=== PATIENT | female | born 1965 | race Caucasian/White ===

== ENCOUNTER 2017-12-31 15:35 | Emergency (ER) | payer MEDICARE, MEDICAID ==
[2017-12-31] MEDS ORDERED: NS 0.9% 1000 ML* 1,000 ML IV ONE (16:05)
[2017-12-31 17:09] LABS: ABS Basophils 0.1 10^3/ul (0-0.2); ABS Eosinophils 0.1 10^3/ul (0-0.6); ABS Lymphocytes 2.2 10^3/ul (1.0-4.8); ABS Monocytes 0.8 10^3/ul (0-0.8); ABS Neutrophils 5.5 10^3/ul (1.5-7.7); ABS Nucleated RBC 0 10^3/ul; Eosinophil % 0.7 % (0-6); Hematocrit 42 % (35-47); Hemoglobin 14.4 g/dl (12.0-16.0); Lymphocyte % 25.1 % (25-47); Mean Corpuscular HGB Conc 34 g/dl (31-36); Mean Corpuscular Hemoglobin 33 pg (27-31); Mean Corpuscular Volume 96 fL (80-97); Mean Platelet Volume 9 um3 (7.4-10.4); Nucleated Red Blood Cells % 0.1; Platelet Count 382 10^3/ul (150-450); Red Blood Count 4.33 10^6/ul (4.0-5.4); Red Cell Distribution Width 14 % (10.5-15); White Blood Count 8.7 10^3/ul (3.5-10.8)
[2017-12-31 17:18] LABS: EGFR Non-African American 84.4 (>60)
--- NOTE | 2017-12-31 18:07 | RAD ---
HISTORY: Bloody stool COMPARISONS: None VIEWS: Frontal views of the abdomen. FINDINGS: BOWEL: There is a nonspecific bowel gas pattern, with nondilated small bowel gas noted. CALCULI: There are no abnormal calculi. BONES AND SOFT TISSUES: Mild degenerative changes are noted. There is postsurgical versus remote post right changes to the left iliac crest. OTHER FINDINGS: The lung bases are clear. There is no subphrenic gas. Surgical clips are noted in the pelvis and in the left upper quadrant. IMPRESSION: NONSPECIFIC BOWEL GAS PATTERN.
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
[2018-01-01 01:22] VITALS: BP 149/78
== END 2017-12-31 19:58 | disposition home or self-care (01) ==
LOC: ED 15:35
DX: K52.9 Noninfective gastroenteritis and colitis, unspecified (principal); K92.2 Gastrointestinal hemorrhage, unspecified; Z87.891 Personal history of nicotine dependence; Z88.5 Allergy status to narcotic agent
CPT/HCPCS: 36415; 74019; 80053; 85025; 96360; 96361; 99283

== ENCOUNTER 2018-02-08 11:57 | Emergency (ER) | payer MEDICAID, MEDICARE ==
[2018-02-08] MEDS ORDERED: Acetaminophen TAB* 325 MG PO ONE (12:50)
[2018-02-08 12:52] VITALS: BP 99/63
--- NOTE | 2018-02-08 13:27 | RAD ---
Indication: Right shoulder pain. 4 views of the right shoulder demonstrates AC joint arthritis. There is no fracture. No other bone or joint abnormality is noted. IMPRESSION: No fracture of the right shoulder is noted.
[2018-02-08] MEDS ORDERED: Naproxen TAB* 250 MG PO ONE (13:28)
--- NOTE | 2018-02-08 13:44 | UC ---
Shoulder Pain HPI - HPI Summary HPI Summary: 53 yo WF p/w right shoulder injury while at work after lifitng heavy dishes for 5 hrs 3 days ago, now virtually has NO ROM in right shoulder and c/o severe pains over rihgt middle head of the deltoid muscle, denies numbness or tingling - History of Current Complaint Chief Complaint: UCUpperExtremity Stated Complaint: SHOULDER INJURY Time Seen by Provider: 02/08/18 13:14 Hx Obtained From: Patient Hx Last Menstrual Period: 4 wks ago Onset/Duration: Lasting Days Severity Initially: Severe Severity Currently: Severe Pain Intensity: 7 Character: Sharp, Throbbing, Spasmodic, Stiffness Aggravating Factor(s): Movement Alleviating Factor(s): Nothing Associated Signs And Symptoms: Positive: Negative - Allergies/Home Medications Allergies/Adverse Reactions: Allergies Allergy/AdvReac Type Severity Reaction Status Date / Time codeine Allergy Unknown Verified 02/08/18 13:32 Reaction Details propoxyphene [From Darvon] Allergy Unknown Verified 02/08/18 13:32 Reaction Details Home Medications: Home Medications Baclofen TAB* [Lioresal TAB*] 1 tab PO DAILY PRN 02/08/18 [History Confirmed ] Gabapentin 1 cap PO DAILY 02/08/18 [History Confirmed 02/08/18] QUEtiapine TAB* [Seroquel TAB*] 50 mg PO DAILY 02/08/18 [History Confirmed 02/08] PMH/Surg Hx/FS Hx/Imm Hx Previously Healthy: Yes - Surgical History Surgical History: Yes Surgery Procedure, Year, and Place: splenectomy;. facial reconstructions;. wrist fracture repair x 2 left,. CERVICAL FUSION 2009 - Family History Known Family History: Positive: Diabetes - Father - Social History Alcohol Use: Occasionally Substance Use Type: None, Prescribed Smoking Status (MU): Former Smoker Review of Systems Constitutional: Negative Skin: Negative Eyes: Negative ENT: Negative Respiratory: Negative Cardiovascular: Negative Gastrointestinal: Negative Genitourinary: Negative Motor: Negative Neurovascular: Negative Musculoskeletal: Myalgia - SEE HPI, Other: - Right shoulder pain Neurological: Negative Psychological: Negative All Other Systems Reviewed And Are Negative: Yes Physical Exam Triage Information Reviewed: Yes Appearance: Ill-Appearing Vital Signs: Initial Vital Signs Temp 36.2 C 02/08/18 12:45 Pulse 97 02/08/18 12:45 Resp 16 02/08/18 12:45 BP 99/63 02/08/18 12:45 Pulse Ox 97 02/08/18 12:45 Eye Exam: Normal ENT Exam: Normal Dental Exam: Normal Neck exam: Normal Neck: Positive: 1 Respiratory Exam: Normal Cardiovascular Exam: Normal Abdominal Exam: Normal Musculoskeletal: Positive: Strength Limited @, ROM Limited @ - right shoulder, severe TTP over middle head of R deltoid Neurological Exam: Normal Psychological Exam: Normal Skin Exam: Normal Shoulder Course/Dx - Course Course Of Treatment: R shoulder XR - no fx - Differential Dx/Diagnosis Differential Diagnosis/HQI/PQRI: Rotator Cuff Injury, Sprain, Strain, Tendonitis Provider Diagnoses: right rotator cuff strain Discharge - Discharge Plan Condition: Stable Disposition: HOME Prescriptions: Naproxen 500 mg PO BID 10 Days #20 tablet Tizanidine HCl [Zanaflex] 4 mg PO BEDTIME 5 Days #5 tablet Patient Education Materials: Rotator Cuff Injury (ED) Referrals: Gruwinder Weldon MD [Primary Care Provider] - Geno Hammer MD [Medical Doctor] - Additional Instructions: Follow up with orthopedics within one week
== END 2018-02-08 14:10 | disposition home or self-care (01) ==
LOC: UCEAST 11:57
DX: S46.011A Strain of muscle(s) and tendon(s) of the rotator cuff of right shoulder, initial encounter (principal); X50.0XXA Overexertion from strenuous movement or load, initial encounter; Y93.89 Activity, other specified; Y92.511 Restaurant or cafe as the place of occurrence of the external cause; Y99.0 Civilian activity done for income or pay; Z88.5 Allergy status to narcotic agent; Z87.891 Personal history of nicotine dependence
CPT/HCPCS: 99212; A9270-GY; G0463

== ENCOUNTER 2018-11-27 16:09 | Emergency (ER) | payer MEDICARE, MEDICAID ==
[2018-11-27 17:00] VITALS: BP 143/82
[2018-11-27] MEDS ORDERED: Ketorolac INJ* 30 MG/ML 1 ML VIAL IM ONE (17:12)
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
== END 2018-11-27 18:42 | disposition home or self-care (01) ==
LOC: UCEAST 16:09
DX: S20.211A Contusion of right front wall of thorax, initial encounter (principal); Z88.5 Allergy status to narcotic agent; Z88.8 Allergy status to other drugs, medicaments and biological substances; Z87.891 Personal history of nicotine dependence; W01.198A Fall on same level from slipping, tripping and stumbling with subsequent striking against other object, initial encounter; Y92.9 Unspecified place or not applicable
CPT/HCPCS: 96372; 99212; G0463; J1885

== ENCOUNTER 2018-12-15 20:44 | Emergency (ER) | payer MEDICARE, MEDICAID ==
[2018-12-15 20:59] VITALS: BP 130/68
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
--- NOTE | 2018-12-16 19:59 | UC ---
- Progress Note Progress Note: Radiologist reading of right-sided rib x-rays from December 15, 2018 is no acute disease process. This is the same interpretation as the provider from the same date therefore there is no discrepancy. Course/Dx - Diagnoses Provider Diagnoses: Rib contusion, Fall Discharge - Sign-Out/Discharge Documenting (check all that apply): Patient Departure All imaging exams completed and their final reports reviewed: Yes - Discharge Plan Condition: Stable Disposition: HOME Patient Education Materials: Rib Contusion (ED) Forms: *Work Release Referrals: Gurwinder Weldon MD [Primary Care Provider] - 4 Days Additional Instructions: If you develop a fever, shortness of breath, chest pain, new or worsening symptoms - please call your PCP or go to the ED. 1) Apply ice to the area to decrease pain 2) May take your Tramadol for pain if needed 3) Please follow up with your Primary Doctor early next week for a recheck of your symptoms - Billing Disposition and Condition Condition: STABLE Disposition: Home
== END 2018-12-15 22:00 | disposition home or self-care (01) ==
LOC: UCEAST 20:44
DX: S20.20XA Contusion of thorax, unspecified, initial encounter (principal); W00.0XXA Fall on same level due to ice and snow, initial encounter; Y92.9 Unspecified place or not applicable; Z88.5 Allergy status to narcotic agent; Z87.891 Personal history of nicotine dependence
CPT/HCPCS: 99211; G0463

== ENCOUNTER 2022-08-27 16:45 | Observation (INO) ==
[2022-08-27] MEDS ORDERED: Piperacillin/Tazobac ADVAN 3.375 GM in NS 0.9% 100 ml BAG 100 ML IV ONE (17:30)
[2022-08-27] MEDS ORDERED: NS 0.9% 1000 ml BAG 1,000 ML IV SCH (17:45)
[2022-08-27 18:27] LABS: ABS Eosinophils 0.3 10^3/ul (0-0.6); ABS Lymphocytes 2.3 10^3/ul (1.0-4.8); ABS Monocytes 0.7 10^3/ul (0-0.8); Eosinophil % 4.4 %; Hematocrit 41 % (35-47); Hemoglobin 13.8 g/dL (12.0-16.0); Lymphocyte % 31.1 %; Mean Corpuscular HGB Conc 34 g/dL (31-36); Mean Corpuscular Hemoglobin 33 pg (27-31); Mean Corpuscular Volume 99 fL (80-97); Mean Platelet Volume 8.4 fL (7.4-10.4); Platelet Count 350 10^3/uL (150-450); Red Blood Count 4.12 10^6 /uL (3.70-4.87); Red Cell Distribution Width 14 % (10-15); White Blood Count 7.3 10^3/uL (3.5-10.8)
[2022-08-27 18:51] LABS: ALT 21 U/L (7-52); Albumin 4.4 g/dL (3.2-5.2); Albumin/Globulin Ratio 1.4 (1-3); Alkaline Phosphatase 73 U/L (35-149); Blood Urea Nitrogen 14 mg/dL (6-24); CO2 Carbon Dioxide 32 mmol/L (22-32); Calcium 9.7 mg/dL (8.6-10.3); Chloride 99 mmol/L (101-111); Globulin 3.1 g/dL (2-4); Glucose 97 mg/dL (70-100); Lipase 36 U/L (11.0-82.0); Sodium 136 mmol/L (135-145); Total Protein 7.5 g/dL (6.4-8.9); eGFR CKD-EPI 89.6 (>60)
[2022-08-27 18:55] LABS: Anion Gap 5 mmol/L (2-11)
[2022-08-27] MEDS ORDERED: Zosyn per Pharmacy NOTE FOLLOW UP SCH (21:00)
[2022-08-27] MEDS: ZOSYN 3.375 GM Q8H per EXTENDED INFUSION IV SCH (23:05)
[2022-08-28] MEDS: ZOSYN 3.375 GM Q8H per EXTENDED INFUSION IV SCH ×2 (05:53→16:35)
[2022-08-28 06:07] LABS: ABS Basophils 0.1 10^3/ul (0-0.2); ABS Eosinophils 0.5 10^3/ul (0-0.6); ABS Lymphocytes 2.4 10^3/ul (1.0-4.8); ABS Monocytes 0.8 10^3/ul (0-0.8); ABS Neutrophils 3.6 10^3/ul (1.5-7.7); Hematocrit 35 % (35-47); Lymphocyte % 32.9 %; Mean Corpuscular HGB Conc 34 g/dL (31-36); Mean Corpuscular Hemoglobin 33 pg (27-31); Mean Corpuscular Volume 98 fL (80-97); Mean Platelet Volume 8.5 fL (7.4-10.4); Platelet Count 321 10^3/uL (150-450); Red Blood Count 3.61 10^6 /uL (3.70-4.87); Red Cell Distribution Width 14 % (10-15); White Blood Count 7.4 10^3/uL (3.5-10.8)
[2022-08-28 06:12] LABS: INR 1.03 (0.89-1.11)
[2022-08-28 06:41] LABS: Calcium 8.8 mg/dL (8.6-10.3); Potassium 4.2 mmol/L (3.5-5.0)
[2022-08-28] MEDS ORDERED: Acetaminophen IV 1 GM/100ML 1,000 MG/100 ML BAG IV PRN (08:15)
[2022-08-28] MEDS ORDERED: Morphine 2 MG/ML SYRINGE IV PRN (08:16)
[2022-08-28 08:42] LABS: C Reactive Protein 96.21 mg/L (<8.01)
[2022-08-28] MEDS ORDERED: Venlafaxine XR 75 mg PO SCH (09:00)
[2022-08-28] MEDS: Venlafaxine XR 75 mg PO SCH (09:42)
[2022-08-28] MEDS: Pantoprazole VIAL 40 MG VIAL IV SCH (09:44)
[2022-08-28] MEDS ORDERED: Enoxaparin 40 MG/0.4 ML SYR SUBCUT ONE (11:38)
[2022-08-29] MEDS ORDERED: Bupivacaine 0.25% w/EPI 10 ML SDV INJ SCH
[2022-08-29] MEDS: ZOSYN 3.375 GM Q8H per EXTENDED INFUSION IV SCH ×3 (00:21→15:04)
[2022-08-29 06:16] LABS: ABS Eosinophils 0.5 10^3/ul (0-0.6); ABS Monocytes 0.5 10^3/ul (0-0.8); ABS Neutrophils 1.5 10^3/ul (1.5-7.7); Eosinophil % 10.8 %; Hematocrit 35 % (35-47); Hemoglobin 11.8 g/dL (12.0-16.0); Lymphocyte % 43.8 %; Mean Corpuscular HGB Conc 34 g/dL (31-36); Mean Corpuscular Hemoglobin 33 pg (27-31); Mean Corpuscular Volume 98 fL (80-97); Platelet Count 329 10^3/uL (150-450); Red Blood Count 3.56 10^6 /uL (3.70-4.87); Red Cell Distribution Width 13 % (10-15); White Blood Count 4.6 10^3/uL (3.5-10.8)
[2022-08-29 06:53] LABS: Calcium 8.7 mg/dL (8.6-10.3); Potassium 4.1 mmol/L (3.5-5.0); eGFR CKD-EPI 84.4 (>60)
[2022-08-29] MEDS ORDERED: Acetaminophen IV 1 GM/100ML 1,000 MG/100 ML BAG IV ONE (07:25)
[2022-08-29] MEDS ORDERED: Propofol 10 MG/ML 20 ML BTL ONE ×2 (07:25→09:45)
[2022-08-29] MEDS ORDERED: Ondansetron 4 mg VIAL 2 MG/ML 2 ml VIAL ONE ×2 (07:25→10:14)
[2022-08-29] MEDS ORDERED: Dexamethasone IV 4 MG/ML VIAL 1 ml VIAL ONE (07:25)
[2022-08-29] MEDS ORDERED: Lidocaine 2% PF 5 ML VIAL ONE (07:25)
[2022-08-29] MEDS ORDERED: Rocuronium 50 mg VIAL 10 mg/ml 5 ml VIAL (50 mg) ONE ×2 (07:29→09:54)
[2022-08-29] MEDS ORDERED: Midazolam 2 mg/2 ml VIAL 1 mg/ml 2 ml VIAL (2 mg) ONE (07:29)
[2022-08-29] MEDS ORDERED: fentaNYL 100 mcg/2 ml 50 MCG/ML VIAL ONE ×2 (07:29→10:13)
[2022-08-29] MEDS ORDERED: Senna TAB 8.6 mg TAB PO PRN (07:35)
[2022-08-29] MEDS ORDERED: fentaNYL 100 mcg/2 ml 50 MCG/ML VIAL IV PRN (09:37)
[2022-08-29] MEDS ORDERED: HYDROcodone/ACETAMIN 5/325 mg TAB PO PRN (09:37)
[2022-08-29] MEDS ORDERED: Metoclopramide 5 MG/ML VIAL (10 mg) IV PRN (09:37)
[2022-08-29] MEDS ORDERED: Naloxone 0.4 mg VIAL 0.4 mg/ml 1 ml VIAL IV PRN (09:37)
[2022-08-29] MEDS ORDERED: Glycopyrrolate IV 0.2 MG/ML 1 ML VIAL ONE (09:37)
[2022-08-29] MEDS ORDERED: Ondansetron 4 mg VIAL 2 MG/ML 2 ml VIAL IV PRN (09:37)
[2022-08-29] MEDS ORDERED: Morphine 10 MG/ML VIAL (1 ml) ONE (09:52)
[2022-08-29] MEDS: Venlafaxine XR 75 mg PO SCH (10:12)
[2022-08-29] MEDS: Pantoprazole VIAL 40 MG VIAL IV SCH (10:12)
[2022-08-29] MEDS ORDERED: HYDROcodone/ACETAMIN 5/325 mg TAB ONE (10:14)
[2022-08-29 17:46] VITALS: BP 152/59
== END 2022-08-29 19:35 | disposition home or self-care (01) ==
LOC: EDHOLD 16:45 → ED 16:45 → EDHOLD 08-28 15:15 → MED 08-28 15:55
PROVIDERS: ADMIT Internal Medicine; ATTEND Internal Medicine

== ENCOUNTER 2022-10-09 08:37 | Observation (INO) ==
[~2022-10-09 08:37] MED LIST: Buffered Lidocaine 1% SYRIN 1 ml INTRADERM ONE; Lactated Ringers 1000 ml BAG 1,000 ML IV SCH; Naloxone 0.4 mg VIAL 0.4 mg/ml 1 ml VIAL IV PRN; Ondansetron 4 mg VIAL 2 MG/ML 2 ml VIAL IV PRN
[2022-10-09] MEDS ORDERED: ceFAZolin 2 GM in NS PREMIX 2 GM/100 ML BAG IVPB ONE (09:24)
[2022-10-09] MEDS ORDERED: Dexamethasone IV 4 MG/ML VIAL 1 ml VIAL ONE ×3 (09:33→11:21)
[2022-10-09] MEDS ORDERED: Midazolam 5 mg/5 ml VIAL 1 mg/ml 5 ml VIAL (5 mg) ONE (09:33)
[2022-10-09] MEDS ORDERED: ROPIVACAINE 5 MG/ML 30 ML BTL (0.5%) ONE ×2 (09:45→10:38)
[2022-10-09] MEDS ORDERED: Lidocaine 2% PF 5 ML VIAL ONE ×2 (09:46→09:53)
[2022-10-09] MEDS ORDERED: HYDROmorphone 0.5 MG/0.5 ML SYRINGE ONE (09:53)
[2022-10-09] MEDS ORDERED: fentaNYL 100 mcg/2 ml 50 MCG/ML VIAL ONE ×3 (09:53→15:10)
[2022-10-09] MEDS ORDERED: Propofol 10 MG/ML 20 ML BTL ONE (09:53)
[2022-10-09] MEDS ORDERED: Ondansetron 4 mg VIAL 2 MG/ML 2 ml VIAL ONE (11:21)
[2022-10-09] MEDS ORDERED: Acetaminophen IV 1 GM/100ML 1,000 MG/100 ML BAG IV ONE (13:07)
[2022-10-09] MEDS ORDERED: Ondansetron ODT 4 mg TAB 4 MG TAB PO PRN (13:40)
[2022-10-09] MEDS ORDERED: Ondansetron 4 mg VIAL 2 MG/ML 2 ml VIAL IV PRN (13:40)
[2022-10-09] MEDS ORDERED: Lactulose 30 ml UDC PO PRN (13:40)
[2022-10-09] MEDS ORDERED: Magnesium Hydroxide LIQ 30 ML UDC PO PRN (13:40)
[2022-10-09] MEDS ORDERED: Morphine 2 MG/ML SYRINGE IV PRN (13:40)
[2022-10-09] MEDS: fentaNYL 100 mcg/2 ml 50 MCG/ML VIAL IV PRN ×5 (14:01→15:14)
[2022-10-09] MEDS: Lactated Ringers 1000 ml BAG 1,000 ML IV SCH (16:28)
[2022-10-09] MEDS: ceFAZolin 1 GM ADVAN 1 GM in NS 0.9% 50 ML 50 ML IVPB SCH (20:55)
[2022-10-09] MEDS: Magnesium Hydroxide LIQ 30 ML UDC PO SCH (22:20)
[2022-10-10] MEDS: Lactated Ringers 1000 ml BAG 1,000 ML IV SCH (03:19)
[2022-10-10] MEDS: ceFAZolin 1 GM ADVAN 1 GM in NS 0.9% 50 ML 50 ML IVPB SCH ×2 (03:20→11:48)
[2022-10-10] MEDS: Magnesium Hydroxide LIQ 30 ML UDC PO SCH (08:14)
[2022-10-10 08:15] LABS: Hematocrit 33 % (35-47); Mean Platelet Volume 8.4 fL (7.4-10.4); Platelet Count 333 10^3/uL (150-450)
[2022-10-10 08:42] LABS: Calcium 8.6 mg/dL (8.6-10.3); Potassium 4.6 mmol/L (3.5-5.0); eGFR CKD-EPI 88.3 (>60)
[2022-10-10] MEDS ORDERED: Venlafaxine XR 75 mg PO SCH (09:00)
[2022-10-10] MEDS ORDERED: Vitamin THERAPEUTIC TAB PO SCH (09:00)
[2022-10-10 11:38] VITALS: BP 91/56
== END 2022-10-10 14:15 | disposition home or self-care (01) ==
LOC: SSU 08:37 → OR 08:37
PROVIDERS: ADMIT Orthopaedic Surgery Adult Reconstructive Orthopaedic Surgery; ATTEND Orthopaedic Surgery Adult Reconstructive Orthopaedic Surgery

== ENCOUNTER 2024-03-14 05:35 | Observation (INO) ==
[2024-03-14] MEDS ORDERED: Chlorhexidine MOUTHWASH 0.12% 15 ML UDC ONE (05:57)
[2024-03-14] MEDS ORDERED: ceFAZolin 2 GM PREMIX 2 GM/50 ML BAG ONE (05:57)
[2024-03-14] MEDS ORDERED: Famotidine IV 10 MG/ML 2 ml VIAL (20 mg) ONE (06:19)
[2024-03-14] MEDS: Famotidine IV 10 MG/ML 2 ml VIAL (20 mg) IV ONE (06:20)
[2024-03-14 06:40] LABS: Rapid COVID-19 Molecular Undetected (Undetected)
[2024-03-14] MEDS ORDERED: Rocuronium 50 mg VIAL 10 mg/ml 5 ml VIAL (50 mg) ONE ×2 (06:59→07:51)
[2024-03-14] MEDS ORDERED: Lidocaine 2% PF 5 ML VIAL ONE (06:59)
[2024-03-14] MEDS ORDERED: Midazolam 5 mg/5 ml VIAL 1 mg/ml 5 ml VIAL (5 mg) ONE (06:59)
[2024-03-14] MEDS ORDERED: HYDROmorphone 0.5 MG/0.5 ML SYRINGE ONE (06:59)
[2024-03-14] MEDS ORDERED: Ondansetron 4 mg VIAL 2 MG/ML 2 ml VIAL ONE (06:59)
[2024-03-14] MEDS ORDERED: Propofol 10 MG/ML 20 ML BTL ONE (06:59)
[2024-03-14] MEDS ORDERED: Dexamethasone IV 4 MG/ML VIAL 1 ml VIAL ONE (06:59)
[2024-03-14] MEDS ORDERED: ceFAZolin VIAL VIAL ONE (07:02)
[2024-03-14] MEDS ORDERED: Lidocaine 1% w EPI 1:100,000 MDV 20 ML VIAL ONE (07:02)
[2024-03-14] MEDS ORDERED: Gelfoam Sponge SIZE 100 SPONGE ONE (07:02)
[2024-03-14] MEDS ORDERED: Thrombin 5,000 UNITS(BOVINE) for Ultrasound Guided Pseudoaneursym ONE (07:02)
[2024-03-14] MEDS ORDERED: Naloxone 0.4 mg VIAL 0.4 mg/ml 1 ml VIAL IV PRN (07:22)
[2024-03-14] MEDS ORDERED: HYDROmorphone 1 MG/1 ML SYRINGE IV PRN (07:22)
[2024-03-14] MEDS ORDERED: Phenylephrine IV 10 MG/ML 1 ml VIAL ONE (07:52)
[2024-03-14] MEDS ORDERED: Acetaminophen IV 1 GM/100ML 1,000 MG/100 ML BAG IV ONE (07:55)
[2024-03-14] MEDS ORDERED: Senna TAB 8.6 mg TAB PO PRN (09:06)
[2024-03-14] MEDS ORDERED: Calcium Carb (TUMS) 500 mg CHEW TAB PO PRN (09:06)
[2024-03-14] MEDS ORDERED: Morphine 2 MG/ML SYRINGE IV PRN (09:06)
[2024-03-14] MEDS ORDERED: Phenol 1.4% Throat Spray BTL MT PRN (09:06)
[2024-03-14] MEDS ORDERED: Dextran 70/Hypromellose Tears Eye Drops 15 ml BTL (for Artificials Tears) BOTH EYES PRN (09:06)
[2024-03-14] MEDS ORDERED: Ondansetron 4 mg VIAL 2 MG/ML 2 ml VIAL IV PRN (09:06)
[2024-03-14] MEDS ORDERED: fentaNYL 100 mcg/2 ml 50 MCG/ML VIAL ONE ×2 (09:22→10:47)
[2024-03-14] MEDS: fentaNYL 100 mcg/2 ml 50 MCG/ML VIAL IV PRN (09:23)
[2024-03-14] MEDS: Lactated Ringers 1000 ml BAG 1,000 ML IV SCH ×2 (12:00→12:30)
[2024-03-14] MEDS: Buffered Lidocaine 1% SYRIN 1 ml INTRADERM ONE (12:30)
[2024-03-14] MEDS: Fluticasone NASAL SPRAY 50MCG 16 gm SPRAY BTL INTRANASAL SCH (21:36)
[2024-03-15 06:20] VITALS: BP 102/65
[2024-03-15] MEDS: Benzocaine/Menthol LOZ MT PRN (07:25)
[2024-03-15] MEDS: Venlafaxine XR 75 mg PO SCH (07:25)
== END 2024-03-15 11:03 | disposition home or self-care (01) ==
LOC: OR 05:35 → SSU 05:35
PROVIDERS: ADMIT Neurological Surgery; ATTEND Neurological Surgery

== ENCOUNTER 2024-11-24 11:28 | Inpatient (IN) ==
[2024-11-24 12:18] LABS: Urine Appearance Clear; Urine Bilirubin Negative (Negative); Urine Blood Negative (Negative); Urine Color Yellow; Urine Glucose Negative (Negative); Urine Ketones Negative (Negative); Urine Nitrite Negative (Negative); Urine Protein Trace (Negative); Urine Urobilinogen Negative (Negative); Urine pH 5.5 (5.0-8.0)
[2024-11-24 12:27] LABS: Urine Bacteria Absent /HPF (Absent); Urine Red Blood Cell Trace(0-2/hpf) /HPF (0-Trace); Urine Squamous Epithelial Cell Present /HPF (Absent); Urine White Blood Cell Trace(0-5/hpf) /HPF (0-Trace)
[2024-11-24 12:32] LABS: ABS Basophils 0.1 10^3/uL (0.0-0.1); ABS Eosinophils 0.1 10^3/uL (0.0-0.5); ABS Lymphocytes 1.9 10^3/uL (1.0-4.8); ABS Monocytes 0.7 10^3/uL (0.0-0.9); ABS Neutrophils 4.2 10^3/uL (1.5-7.6); Eosinophil % 1.6 %; Hematocrit 40.8 % (35-45); Mean Corpuscular Hemoglobin 34.5 pg (27-33); Mean Corpuscular Hgb Conc 34.3 g/dL (31-36); Mean Corpuscular Volume 100.7 fL (80-97); Nucleated Red Blood Cells % 0.1 %/100WBC (0.0-0.8); Platelet Count 380 10^3/uL (150-450); Red Blood Count 4.05 10^6/uL (3.63-4.92); Red Cell Distribution Width 13.3 % (12-17); White Blood Count 6.9 10^3/uL (3.8-11.8)
[2024-11-24 12:40] LABS: Urine Benzodiazepine Screen None Detected (None Detect); Urine Cannabinoids Screen None Detected (None Detect); Urine Opiates Screen None Detected (None Detect)
[2024-11-24 13:15] LABS: ALT 17 U/L (7-52); AST 18 U/L (13-39); Acetaminophen < 15 mcg/mL; Albumin 4.1 g/dL (3.5-5.7); Albumin/Globulin Ratio 1.7 (1-3); Alcohol, S < 13 mg/dL (<13); Alkaline Phosphatase 65 U/L (35-149); Anion Gap 9 mmol/L (2-16); Blood Urea Nitrogen 21 mg/dL (6-24); CO2 Carbon Dioxide 25 mmol/L (22-32); Calcium 8.7 mg/dL (8.6-10.3); Chloride 104 mmol/L (101-111); Creatinine, Serum 0.92 mg/dL (0.51-0.95); Globulin 2.4 g/dL (2-4); Glucose 95 mg/dL (70-100); Potassium 4.3 mmol/L (3.5-5.0); Salicylate < 2.50 mg/dL (<30); Sodium 138 mmol/L (135-145); Total Bilirubin 0.4 mg/dL (0.2-1.0); Total Protein 6.5 g/dL (6.4-8.9); eGFR CKD-EPI 72.6 (>60)
[2024-11-24 13:27] LABS: TSH Ultra Thyroid Stim Horm 2.16 mcIU/mL (0.34-5.60)
[2024-11-24] MEDS ORDERED: Al Hydrox/Mg Hydrox/Simet LIQ 30 ML UDC PO PRN (15:27)
[2024-11-25 07:59] LABS: HDL Cholesterol 46.3 mg/dL
[2024-11-25] MEDS: Venlafaxine XR 75 mg PO SCH (09:02)
[2024-11-25] MEDS: Vitamin THERAPEUTIC TAB PO SCH (09:02)
[2024-11-25] MEDS: Meloxicam 7.5 mg TAB (NF) PO SCH (14:14)
[2024-11-26] MEDS: Venlafaxine XR 75 mg PO SCH (08:54)
[2024-11-26] MEDS: LINACLOTIDE 72 MCG CAP (NF) PO SCH (11:47)
[2024-11-27 11:15] VITALS: BP 114/68
[2024-11-28] MEDS: Polyethylene Glycol 3350 17 GM PACKET PO SCH (13:55)
== END 2024-11-29 15:15 | disposition home or self-care (01) | DRG 882 ==
LOC: ED 11:28 → EDHOLD 15:27 → BSU 16:20
PROVIDERS: ADMIT Psychiatry & Neurology Psychiatry; ATTEND Psychiatry & Neurology Psychiatry